=== PATIENT | male | born 1965 | race Caucasian/White ===

== ENCOUNTER 2025-02-27 09:30 | Inpatient (IN) | payer OTHER ==
[2025-02-27 11:27] LABS: PH,URINE 7.5 (5.0-8.0); URINE APPEARANCE CLEAR; URINE BILIRUBIN NEGATIVE (NEGATIVE); URINE COLOR YELLOW; URINE GLUCOSE (UA) NEGATIVE (NEGATIVE); URINE KETONE NEGATIVE (NEGATIVE); URINE LEUK ESTERASE NEGATIVE (NEGATIVE); URINE NITRITE NEGATIVE (NEGATIVE); URINE PROTEIN NEGATIVE (NEGATIVE)
[2025-02-27 11:44] LABS: CHLORIDE 104 mmol/L (98-107); POTASSIUM 3.8 mmol/L (3.5-5.1); SODIUM 134 mmol/L (136-145)
[2025-02-27 11:47] LABS: CALCIUM 9.3 mg/dL (8.5-10.1)
[2025-02-27 11:48] LABS: ANION GAP 7 mmol/L (4-13); BLOOD UREA NITROGEN 11.9 mg/dL (7-18); CO2 24 mmol/L (21-32); GLUCOSE,RANDOM 105 mg/dL (74-106); MAGNESIUM 2.2 mg/dL (1.8-2.4)
[2025-02-27 11:50] LABS: CREATININE 0.5 mg/dL (0.55-1.3); SGOT/AST 42 U/L (15-37); SGPT/ALT 33 U/L (13-61)
[2025-02-27 11:51] LABS: BILIRUBIN,TOTAL 0.7 mg/dL (0.2-1)
[2025-02-27 11:52] LABS: ALK PHOS 285 U/L (45-117); TOT PROT 6.8 g/dl (6.4-8.2)
[2025-02-27 12:18] LABS: ABSOLUTE IMMATURE GRANULOCYTES 0.04 x10^3/uL (0.0-0.031); BASOPHILS # 0.05 x10^3/uL (0.01-0.08); EOSINOPHIL % 0.7 % (0.8-7.0); EOSINOPHILS # 0.07 x10^3/uL (0.04-0.54); HEMATOCRIT 32.5 % (40.1-51.0); HEMOGLOBIN 10.5 g/dL (13.7-17.5); MCHC 32.3 g/dl (32.3-36.5); MEAN CELL VOLUME 83.8 fl (79.0-92.2); MEAN PLT VOLUME 9.6 fl (9.4-12.4); MONOCYTE # 0.82 x10^3/uL (0.30-0.82); MONOCYTE % 8.7 % (5.3-12.2); PLATELET COUNT 367 x10^3/uL (163-337); RDW 12.8 % (12.2-16.1)
[2025-02-27 12:25] LABS: INR 1.14 (0.83-1.09); PROTHROMBIN TIME (PATIENT) 12.4 SEC (9.7-13.0)
[2025-02-27 12:27] LABS: ACTIVATED PTT 19.5 SECONDS (25.2-36.5)
[2025-02-27 12:52] LABS: HIV INTERPRETATION NEGATIVE (NEGATIVE)
[2025-02-27 12:56] LABS: HCV DIAGNOSTIC IN-HOUSE W/RFLX NON-REACTIVE (NONREACTIVE)
[2025-02-27] MEDS ORDERED: ONDANSETRON 4 MG/2 ML VIAL IVPUSH PRN (14:57)
[2025-02-27] MEDS ORDERED: morphine SULFATE 4 MG/ML VIAL ONE (16:08)
[2025-02-27] MEDS: morphine SULFATE 4 MG/ML VIAL IVPUSH ONE (16:15)
[2025-02-27 17:05] LABS: METHADONE, UR NEGATIVE (NEGATIVE); URINE AMPHETAMINES NEGATIVE (NEGATIVE); URINE BARBITURATES NEGATIVE (NEGATIVE); URINE BENZODIAZEPINES NEGATIVE (NEGATIVE)
[2025-02-27 17:06] LABS: OPIATES, URI NEGATIVE (NEGATIVE); PHENCYCLIDINE,URINE NEGATIVE (NEGATIVE)
[2025-02-27 17:08] LABS: COCAINE, UR POSITIVE (NEGATIVE)
[2025-02-27 17:25] VITALS: BMI 28.3
[2025-02-27] MEDS: traMADol HCL 50 MG TABLET PO PRN (19:01)
[2025-02-27] MEDS: HEPARIN NA (PORCINE) 5,000 UNITS/ML 1ML VIAL SQ SCH (21:17)
[2025-02-27] MEDS: ACETAMINOPHEN 500 MG TABLET (FP) PO PRN (21:22)
[2025-02-28 08:21] LABS: ABSOLUTE IMMATURE GRANULOCYTES 0.02 x10^3/uL (0.0-0.031); BASOPHILS # 0.05 x10^3/uL (0.01-0.08); EOSINOPHIL % 1.2 % (0.8-7.0); EOSINOPHILS # 0.08 x10^3/uL (0.04-0.54); HEMATOCRIT 30.6 % (40.1-51.0); HEMOGLOBIN 10.1 g/dL (13.7-17.5); MEAN CELL VOLUME 82.9 fl (79.0-92.2); MEAN PLT VOLUME 9.1 fl (9.4-12.4); MONOCYTE # 0.67 x10^3/uL (0.30-0.82); MONOCYTE % 10.2 % (5.3-12.2); PLATELET COUNT 361 x10^3/uL (163-337); RDW 12.6 % (12.2-16.1)
[2025-02-28 09:01] LABS: INR 1.18 (0.83-1.09)
[2025-02-28 09:05] LABS: POTASSIUM 3.8 mmol/L (3.5-5.1)
[2025-02-28 09:07] LABS: BLOOD UREA NITROGEN 8.8 mg/dL (7-18); CALCIUM 9.2 mg/dL (8.5-10.1)
[2025-02-28 09:11] LABS: CREATININE 0.6 mg/dL (0.55-1.3)
[2025-02-28 09:13] LABS: BILIRUBIN,TOTAL 0.6 mg/dL (0.2-1)
[2025-02-28 12:32] LABS: HEPATITIS B SURF AG NON-MATERN NON-REACTIVE (NONREACTIVE)
[2025-02-28] MEDS: ACETAMINOPHEN 1000 MG/100 ML BAG IVPB ONE (16:49)
[2025-02-28] MEDS ORDERED: LACTATED RINGERS SOLUTION 1,000 ML/1,000 ML INFUS.BAG IV SCH (17:45)
[2025-02-28] MEDS: LACTATED RINGERS SOLUTION 1,000 ML/1,000 ML INFUS.BAG IV SCH (23:01)
[2025-03-01 08:30] LABS: ABSOLUTE IMMATURE GRANULOCYTES 0.02 x10^3/uL (0.0-0.031); BASOPHILS # 0.04 x10^3/uL (0.01-0.08); EOSINOPHIL % 1.1 % (0.8-7.0); EOSINOPHILS # 0.08 x10^3/uL (0.04-0.54); HEMATOCRIT 30.9 % (40.1-51.0); HEMOGLOBIN 10.1 g/dL (13.7-17.5); MCHC 32.7 g/dl (32.3-36.5); MEAN CELL VOLUME 83.1 fl (79.0-92.2); MEAN PLT VOLUME 9.1 fl (9.4-12.4); MONOCYTE # 0.64 x10^3/uL (0.30-0.82); MONOCYTE % 8.7 % (5.3-12.2); PLATELET COUNT 368 x10^3/uL (163-337); RDW 12.6 % (12.2-16.1)
[2025-03-01 08:37] LABS: INR 1.18 (0.83-1.09); PROTHROMBIN TIME (PATIENT) 12.9 SEC (9.7-13.0)
[2025-03-01 08:55] LABS: POTASSIUM 4.1 mmol/L (3.5-5.1)
[2025-03-01 09:06] LABS: ALBUMIN 2.9 g/dl (3.4-5.0); BLOOD UREA NITROGEN 7.7 mg/dL (7-18); CALCIUM 9.3 mg/dL (8.5-10.1)
[2025-03-01 09:07] LABS: CREATININE 0.6 mg/dL (0.55-1.3)
[2025-03-01 09:10] LABS: BILIRUBIN,TOTAL 0.9 mg/dL (0.2-1); TOT PROT 6.7 g/dl (6.4-8.2)
[2025-03-01] MEDS: MULTIVITAMINS (DAILY MVI) TABLET (FP) PO SCH (09:19)
[2025-03-01] MEDS: PANTOPRAZOLE SODIUM 40 MG VIAL IVPUSH SCH (09:22)
[2025-03-01] MEDS ORDERED: PANTOPRAZOLE SODIUM 40 MG in SODIUM CHLORIDE 100 ML IVPB SCH (10:00)
[2025-03-01] MEDS ORDERED: MIDAZOLAM HCL 2 MG/2 ML SINGLE DOSE VIAL ONE (10:32)
[2025-03-01 14:06] LABS: CARCINOEMBRYONIC ANTIGEN 26.1 ng/mL (0.0-4.7)
[2025-03-02] MEDS: POLYETHYLENE GLYCOL (HEALTHYLAX) 3350 17 GM PACKET PO SCH (00:05)
[2025-03-02 08:38] LABS: ABSOLUTE IMMATURE GRANULOCYTES 0.05 x10^3/uL (0.0-0.031); BASOPHILS # 0.04 x10^3/uL (0.01-0.08); EOSINOPHIL % 0.3 % (0.8-7.0); EOSINOPHILS # 0.03 x10^3/uL (0.04-0.54); HEMATOCRIT 30.1 % (40.1-51.0); HEMOGLOBIN 9.8 g/dL (13.7-17.5); MCHC 32.6 g/dl (32.3-36.5); MEAN CELL VOLUME 83.1 fl (79.0-92.2); MEAN PLT VOLUME 9.4 fl (9.4-12.4); MONOCYTE # 0.93 x10^3/uL (0.30-0.82); MONOCYTE % 8.5 % (5.3-12.2); PLATELET COUNT 402 x10^3/uL (163-337); RDW 12.7 % (12.2-16.1)
[2025-03-02 09:05] LABS: POTASSIUM 4.2 mmol/L (3.5-5.1)
[2025-03-02 09:15] LABS: CALCIUM 9.4 mg/dL (8.5-10.1)
[2025-03-02 09:17] LABS: BLOOD UREA NITROGEN 9.5 mg/dL (7-18); MAGNESIUM 2.3 mg/dL (1.8-2.4)
[2025-03-02 09:18] LABS: CREATININE 0.7 mg/dL (0.55-1.3)
[2025-03-02 09:20] LABS: BILIRUBIN,TOTAL 0.4 mg/dL (0.2-1); TOT PROT 6.8 g/dl (6.4-8.2)
[2025-03-02] MEDS: PANTOPRAZOLE 40 MG TABLET PO SCH (10:39)
[2025-03-02] MEDS: SENNOSIDES 8.6MG TABLET (FP) PO PRN (21:36)
[2025-03-03 08:48] LABS: ABSOLUTE IMMATURE GRANULOCYTES 0.03 x10^3/uL (0.0-0.031); BASOPHILS # 0.04 x10^3/uL (0.01-0.08); EOSINOPHIL % 0.6 % (0.8-7.0); EOSINOPHILS # 0.05 x10^3/uL (0.04-0.54); HEMATOCRIT 31.6 % (40.1-51.0); HEMOGLOBIN 10.1 g/dL (13.7-17.5); MEAN CELL VOLUME 83.2 fl (79.0-92.2); MEAN PLT VOLUME 9.3 fl (9.4-12.4); MONOCYTE # 0.89 x10^3/uL (0.30-0.82); MONOCYTE % 10.6 % (5.3-12.2); PLATELET COUNT 372 x10^3/uL (163-337); RDW 12.8 % (12.2-16.1)
[2025-03-03 08:55] LABS: INR 1.17 (0.83-1.09); PROTHROMBIN TIME (PATIENT) 12.7 SEC (9.7-13.0)
[2025-03-03 09:17] LABS: POTASSIUM 4.5 mmol/L (3.5-5.1)
[2025-03-03 09:23] LABS: CALCIUM 9.4 mg/dL (8.5-10.1)
[2025-03-03 09:24] LABS: BLOOD UREA NITROGEN 11.4 mg/dL (7-18)
[2025-03-03 09:26] LABS: BILIRUBIN,TOTAL 0.6 mg/dL (0.2-1); TOT PROT 6.9 g/dl (6.4-8.2)
[2025-03-03 09:27] LABS: CREATININE 0.6 mg/dL (0.55-1.3)
[2025-03-03] MEDS: LACTATED RINGERS SOLUTION 1,000 ML/1,000 ML INFUS.BAG IV SCH (12:36)
[2025-03-03] MEDS: MAGNESIUM HYDROX 2400MG/30ML ORAL SUSPENSION 30 ML CUP PO ONE (12:36)
[2025-03-03] MEDS ORDERED: POLYETHYLENE GLYCOL (HEALTHYLAX) 3350 17 GM PACKET PO SCH (17:15)
[2025-03-03] MEDS: POLYETHYLENE GLYCOL (HEALTHYLAX) 3350 17 GM PACKET PO SCH (21:04)
[2025-03-04 07:25] LABS: ABSOLUTE IMMATURE GRANULOCYTES 0.03 x10^3/uL (0.0-0.031); BASOPHILS # 0.04 x10^3/uL (0.01-0.08); EOSINOPHIL % 0.9 % (0.8-7.0); EOSINOPHILS # 0.08 x10^3/uL (0.04-0.54); HEMATOCRIT 33.3 % (40.1-51.0); HEMOGLOBIN 10.7 g/dL (13.7-17.5); MCHC 32.1 g/dl (32.3-36.5); MEAN CELL VOLUME 82.6 fl (79.0-92.2); MEAN PLT VOLUME 9.4 fl (9.4-12.4); MONOCYTE # 0.69 x10^3/uL (0.30-0.82); MONOCYTE % 7.8 % (5.3-12.2); PLATELET COUNT 414 x10^3/uL (163-337); RDW 12.8 % (12.2-16.1)
[2025-03-04 07:49] LABS: INR 1.15 (0.83-1.09); PROTHROMBIN TIME (PATIENT) 12.5 SEC (9.7-13.0)
[2025-03-04 07:55] LABS: ALBUMIN 3.2 g/dl (3.4-5.0); BLOOD UREA NITROGEN 9.1 mg/dL (7-18); CALCIUM 9.5 mg/dL (8.5-10.1)
[2025-03-04 07:56] LABS: MAGNESIUM 2.3 mg/dL (1.8-2.4)
[2025-03-04 07:58] LABS: CREATININE 0.6 mg/dL (0.55-1.3)
[2025-03-04 08:00] LABS: BILIRUBIN,TOTAL 0.7 mg/dL (0.2-1); TOT PROT 7.1 g/dl (6.4-8.2)
[2025-03-04] MEDS ORDERED: MIDAZOLAM HCL 2 MG/2 ML SINGLE DOSE VIAL ONE (10:30)
[2025-03-04] MEDS ORDERED: FENTANYL CITRATE/PF 50 MCG/ML VIAL ONE (10:30)
[2025-03-04] MEDS: FENTANYL CITRATE/PF 50 MCG/ML VIAL IVPUSH ONE (10:34)
[2025-03-04] MEDS: SODIUM CHLORIDE 500 ML IV ONE (13:38)
[2025-03-04 15:25] VITALS: RESP 18
[2025-03-05 08:30] LABS: ABSOLUTE IMMATURE GRANULOCYTES 0.03 x10^3/uL (0.0-0.031); BASOPHILS # 0.05 x10^3/uL (0.01-0.08); EOSINOPHIL % 0.7 % (0.8-7.0); EOSINOPHILS # 0.06 x10^3/uL (0.04-0.54); HEMATOCRIT 31.8 % (40.1-51.0); HEMOGLOBIN 10.2 g/dL (13.7-17.5); MCHC 32.1 g/dl (32.3-36.5); MEAN CELL VOLUME 81.5 fl (79.0-92.2); MEAN PLT VOLUME 9.3 fl (9.4-12.4); MONOCYTE % 8.7 % (5.3-12.2); PLATELET COUNT 383 x10^3/uL (163-337); RDW 12.8 % (12.2-16.1)
[2025-03-05 09:52] LABS: CALCIUM 9.4 mg/dL (8.5-10.1)
[2025-03-05 09:53] LABS: BLOOD UREA NITROGEN 8.7 mg/dL (7-18); MAGNESIUM 2.2 mg/dL (1.8-2.4)
[2025-03-05 09:56] LABS: CREATININE 0.6 mg/dL (0.55-1.3)
[2025-03-05 09:58] LABS: BILIRUBIN,TOTAL 0.5 mg/dL (0.2-1); TOT PROT 7.1 g/dl (6.4-8.2)
[2025-03-05 10:06] LABS: POTASSIUM 4.2 mmol/L (3.5-5.1)
[2025-03-05 15:18] VITALS: BP 131/84; PULSE 73; TEMP 99.3
== END 2025-03-05 14:24 | disposition home health service (06) | DRG 281 ==
LOC: JER 09:30 → JERBED 14:55 → J8W 16:52
PROVIDERS: ADMIT Internal Medicine; ATTEND Nurse Practitioner Acute Care
PROC: 0FBG3ZX Excision of Pancreas, Percutaneous Approach, Diagnostic (ICD-10-PCS; principal; 2025-03-01 13:30)
PROC: 0FB03ZX Excision of Liver, Percutaneous Approach, Diagnostic (ICD-10-PCS; 2025-03-04)
DX: C25.9 Malignant neoplasm of pancreas, unspecified (principal); R91.1 Solitary pulmonary nodule; C78.7 Secondary malignant neoplasm of liver and intrahepatic bile duct; E44.0 Moderate protein-calorie malnutrition; Z68.28 Body mass index [BMI] 28.0-28.9, adult; R63.4 Abnormal weight loss
CPT/HCPCS: 36415; 47000; 71260-TC; 74177-TC; 74183-TC; 76942-TC; 80048; 80053; 80307; 81003; 82105; 82378; 82550; 83690; 83735; 84484; 85025; 85610; 85730; 86301; 86704; 86708; 86803; 86850; 86900; 86901; 87086; 87340; 87389; 87517; 88305-TC; 88307-TC; 88341-TC; 88342-TC; 93005; 93010; 97116-GP; 97161-GP; 99285-25; J0131; J1644

== ENCOUNTER 2025-03-27 12:47 | Emergency (ER) | payer OTHER ==
[2025-03-27 13:08] VITALS: RESP 20; TEMP 98.4; BMI 28.3
[2025-03-27 14:35] VITALS: PULSE 98
[2025-03-27] MEDS: LACTATED RINGERS SOLUTION 1000 ML INFUS.BAG IV ONE (14:37)
[2025-03-27 14:46] LABS: HEMATOCRIT 27.6 % (40.1-51.0); HEMOGLOBIN 8.9 g/dL (13.7-17.5); MCHC 32.2 g/dl (32.3-36.5); RDW 14.2 % (12.2-16.1)
[2025-03-27 14:47] LABS: MEAN PLT VOLUME 9.3 fl (9.4-12.4); PLATELET COUNT 261 x10^3/uL (163-337)
[2025-03-27 14:55] LABS: POTASSIUM 4.1 mmol/L (3.5-5.1)
[2025-03-27 14:57] LABS: CALCIUM 9.6 mg/dL (8.5-10.1)
[2025-03-27 14:58] LABS: BLOOD UREA NITROGEN 16.2 mg/dL (7-18); MAGNESIUM 2.1 mg/dL (1.8-2.4)
[2025-03-27 15:01] LABS: CREATININE 0.7 mg/dL (0.55-1.3)
[2025-03-27 15:03] LABS: BILIRUBIN,TOTAL 0.5 mg/dL (0.2-1); TOT PROT 7.3 g/dl (6.4-8.2)
[2025-03-27 16:19] VITALS: BP 112/67
== END 2025-03-27 16:20 | disposition home or self-care (01) ==
LOC: JER 12:47
DX: I95.9 Hypotension, unspecified (principal)
CPT/HCPCS: 0241U-QW; 36415; 71046-TC-FY; 80053; 83735; 84484; 85025; 93005; 93010; 99285-25

== ENCOUNTER 2025-04-30 08:08 | Day surgery (SDC) | payer OTHER ==
[2025-04-30 08:43] LABS: ABSOLUTE IMMATURE GRANULOCYTES 0.01 x10^3/uL (0.0-0.031); BASOPHILS # 0.04 x10^3/uL (0.01-0.08); EOSINOPHIL % 0.4 % (0.8-7.0); EOSINOPHILS # 0.02 x10^3/uL (0.04-0.54); MCHC 30.4 g/dl (32.3-36.5); MEAN CELL VOLUME 75.2 fl (79.0-92.2); MEAN PLT VOLUME 8.8 fl (9.4-12.4); MONOCYTE # 0.59 x10^3/uL (0.30-0.82); MONOCYTE % 12.6 % (5.3-12.2); RDW 17.2 % (12.2-16.1)
[2025-04-30 09:07] LABS: CO2 25 mmol/L (21-32); GLUCOSE,RANDOM 172 mg/dL (74-106)
[2025-04-30 09:10] LABS: CREATININE 0.5 mg/dL (0.55-1.3)
[2025-04-30 09:23] LABS: SGOT/AST 30.0 U/L (15-37); SGPT/ALT 25.0 U/L (13-61)
[2025-04-30 09:24] LABS: TOT PROT 6.9 g/dl (6.4-8.2)
[2025-04-30 09:26] LABS: ALK PHOS 387.0 U/L (45-117)
[2025-04-30] MEDS: FOSAPREPITANT DIMEGLUMINE 150 MG in SODIUM CHLORIDE 145 ML IVPB ONE (11:06)
[2025-04-30] MEDS: PALONOSETRON HCL 0.25 MG/5 ML VIAL IVPUSH ONE (11:09)
[2025-04-30] MEDS: SODIUM CHLORIDE 250 ML IV ONE (11:10)
[2025-04-30] MEDS: DEXAMETHASONE SODIUM PHOSPHATE 10 MG in SODIUM CHLORIDE 50 ML IVPB ONE (11:47)
[2025-04-30] MEDS: LEUCOVORIN IVPB ONE (14:31)
[2025-04-30] MEDS: WATER IVPB ONE ×2 (14:31→14:32)
[2025-04-30] MEDS: DEXTROSE 5% IVPB ONE ×2 (14:31→14:32)
[2025-04-30] MEDS: ATROPINE SO4 0.4 MG/1 ML VIAL IVPUSH ONE (14:31)
[2025-04-30] MEDS: IRINOTECAN HCL IVPB ONE (14:32)
[2025-04-30 15:57] VITALS: TEMP 98.3
[2025-04-30] MEDS: FLUOROURACIL 4,500 MG in SODIUM CHLORIDE 2 ML CP ONE (16:40)
[2025-04-30 17:32] VITALS: BP 126/74; PULSE 85; RESP 20
== END 2025-04-30 15:45 | disposition home or self-care (01) ==
LOC: JONCCHEMO 08:08
PROVIDERS: ATTEND Internal Medicine Hematology & Oncology
DX: Z51.11 Encounter for antineoplastic chemotherapy (principal); C25.9 Malignant neoplasm of pancreas, unspecified; C78.7 Secondary malignant neoplasm of liver and intrahepatic bile duct
CPT/HCPCS: 36415; 80048; 80076; 85025; 86301; 96367; 96368; 96375; 96413; 96415; 96417; G0498; J1453; J9206; J9263

== ENCOUNTER 2025-05-02 13:40 | Day surgery (SDC) | payer OTHER ==
[2025-05-02] MEDS: PORTA CATH FLUSH 10 ML IVPUSH PRN (14:30)
[2025-05-02 16:45] VITALS: BP 105/67; PULSE 97; RESP 18; TEMP 97.6
== END 2025-05-02 14:50 | disposition home or self-care (01) ==
LOC: JONCCHEMO 13:40 → J7W 14:24 → JONCCHEMO 14:50
PROVIDERS: ATTEND Internal Medicine Hematology & Oncology
DX: Z53.8 Procedure and treatment not carried out for other reasons (principal)

== ENCOUNTER 2025-05-28 08:25 | Day surgery (SDC) | payer OTHER ==
[2025-05-28] MEDS: SODIUM CHLORIDE 250 ML IV ONE (08:50)
[2025-05-28 09:21] LABS: ABSOLUTE IMMATURE GRANULOCYTES 0.02 x10^3/uL (0.0-0.031); BASOPHILS # 0.04 x10^3/uL (0.01-0.08); EOSINOPHIL % 1.0 % (0.8-7.0); EOSINOPHILS # 0.05 x10^3/uL (0.04-0.54); MCHC 30.0 g/dl (32.3-36.5); MEAN CELL VOLUME 74.5 fl (79.0-92.2); MEAN PLT VOLUME 9.9 fl (9.4-12.4); MONOCYTE # 0.63 x10^3/uL (0.30-0.82); MONOCYTE % 12.8 % (5.3-12.2); RDW 19.9 % (12.2-16.1)
[2025-05-28 10:18] LABS: CO2 28.0 mmol/L (21-32); GLUCOSE,RANDOM 234.0 mg/dL (74-106)
[2025-05-28 10:21] LABS: CREATININE 0.6 mg/dL (0.55-1.3)
[2025-05-28 11:05] LABS: SGOT/AST 26.0 U/L (15-37); SGPT/ALT 31.0 U/L (13-61)
[2025-05-28 11:06] LABS: TOT PROT 7.0 g/dl (6.4-8.2)
[2025-05-28 11:07] LABS: ALK PHOS 294.0 U/L (45-117)
[2025-05-28] MEDS: FOSAPREPITANT DIMEGLUMINE 150 MG in SODIUM CHLORIDE 145 ML IVPB ONE (11:10)
[2025-05-28] MEDS: DEXAMETHASONE SODIUM PHOSPHATE 10 MG in SODIUM CHLORIDE 50 ML IVPB ONE (11:42)
[2025-05-28] MEDS: PALONOSETRON HCL 0.25 MG/5 ML VIAL IVPUSH ONE (11:42)
[2025-05-28 14:09] VITALS: RESP 20; TEMP 98
[2025-05-28] MEDS: ATROPINE SO4 0.4 MG/1 ML VIAL IVPUSH ONE (14:20)
[2025-05-28] MEDS: WATER IVPB ONE ×2 (14:21→14:22)
[2025-05-28] MEDS: LEUCOVORIN IVPB ONE (14:21)
[2025-05-28] MEDS: DEXTROSE 5% IVPB ONE ×2 (14:21→14:22)
[2025-05-28] MEDS: IRINOTECAN HCL IVPB ONE (14:22)
[2025-05-28] MEDS: FLUOROURACIL 4,500 MG in SODIUM CHLORIDE 2 ML CP ONE (16:35)
[2025-05-28 17:39] VITALS: BP 123/77; PULSE 92
== END 2025-05-28 16:45 | disposition home or self-care (01) ==
LOC: JONCCHEMO 08:25 → J7W 08:38 → JONCCHEMO 16:45
PROVIDERS: ATTEND Internal Medicine Hematology & Oncology
DX: Z51.11 Encounter for antineoplastic chemotherapy (principal); C25.9 Malignant neoplasm of pancreas, unspecified; C78.7 Secondary malignant neoplasm of liver and intrahepatic bile duct
CPT/HCPCS: 36415; 80048; 80076; 85025; 86301; 96367; 96368; 96375; 96413; 96415; 96417; G0498; J1453; J9206; J9263

== ENCOUNTER 2025-06-11 08:28 | Day surgery (SDC) | payer OTHER ==
[2025-06-11] MEDS: SODIUM CHLORIDE 250 ML IV ONE (09:00)
[2025-06-11 09:19] LABS: ABSOLUTE IMMATURE GRANULOCYTES 0.01 x10^3/uL (0.0-0.031); BASOPHILS # 0.03 x10^3/uL (0.01-0.08); EOSINOPHIL % 1.1 % (0.8-7.0); EOSINOPHILS # 0.05 x10^3/uL (0.04-0.54); MCHC 30.4 g/dl (32.3-36.5); MEAN CELL VOLUME 75.5 fl (79.0-92.2); MONOCYTE # 0.65 x10^3/uL (0.30-0.82); MONOCYTE % 13.7 % (5.3-12.2); RDW 20.4 % (12.2-16.1)
[2025-06-11 09:46] LABS: GLUCOSE,RANDOM 294 mg/dL (74-106)
[2025-06-11 09:47] LABS: TOT PROT 7.0 g/dl (6.4-8.2)
[2025-06-11 09:48] LABS: CO2 25 mmol/L (21-32)
[2025-06-11 09:49] LABS: ALK PHOS 265 U/L (40-150)
[2025-06-11 09:52] LABS: CREATININE 0.50 mg/dL (0.55-1.3); SGOT/AST 31 U/L (5-34); SGPT/ALT 26 U/L (0-55)
[2025-06-11] MEDS: FOSAPREPITANT DIMEGLUMINE 150 MG in SODIUM CHLORIDE 145 ML IVPB ONE (10:34)
[2025-06-11] MEDS: DEXAMETHASONE SODIUM PHOSPHATE 10 MG in SODIUM CHLORIDE 50 ML IVPB ONE (11:07)
[2025-06-11] MEDS: PALONOSETRON HCL 0.25 MG/5 ML VIAL IVPUSH ONE (11:41)
[2025-06-11] MEDS: ATROPINE SO4 0.4 MG/1 ML VIAL IVPUSH ONE (13:57)
[2025-06-11] MEDS: LEUCOVORIN IVPB ONE (13:58)
[2025-06-11] MEDS: DEXTROSE 5% IVPB ONE ×2 (13:58→13:59)
[2025-06-11] MEDS: WATER IVPB ONE ×2 (13:58→13:59)
[2025-06-11] MEDS: IRINOTECAN HCL IVPB ONE (13:59)
[2025-06-11 15:49] VITALS: BP 110/74; PULSE 93; RESP 18; TEMP 97.7
[2025-06-11] MEDS ORDERED: PORTA CATH FLUSH 10 ML IVPUSH PRN (15:56)
[2025-06-11] MEDS: FLUOROURACIL 4,575 MG in SODIUM CHLORIDE 0.5 ML CP ONE (16:18)
== END 2025-06-11 16:30 | disposition home or self-care (01) ==
LOC: JONCCHEMO 08:28 → J7W 08:28 → JONCCHEMO 16:30
PROVIDERS: ATTEND Internal Medicine Hematology & Oncology
PROC: 3E04305 Introduction of Other Antineoplastic into Central Vein, Percutaneous Approach (ICD-10-PCS; principal; 2025-06-11)
PROC: 3E043GC Introduction of Other Therapeutic Substance into Central Vein, Percutaneous Approach (ICD-10-PCS; 2025-06-11)
DX: Z51.11 Encounter for antineoplastic chemotherapy (principal); C25.9 Malignant neoplasm of pancreas, unspecified; C78.7 Secondary malignant neoplasm of liver and intrahepatic bile duct
CPT/HCPCS: 36415; 80048; 80076; 85025; 96368; 96413; 96415; G0498; J1453; J9206; J9263

== ENCOUNTER 2025-07-09 07:41 | Day surgery (SDC) | payer OTHER ==
[2025-07-09 08:18] LABS: IMMATURE PLATELET FRACTION # 3.00 x10^3/uL; MCHC 30.9 g/dl (32.3-36.5); MEAN CELL VOLUME 76.5 fl (79.0-92.2); MEAN PLT VOLUME 10.0 fl (9.4-12.4); RDW 19.8 % (12.2-16.1)
[2025-07-09 09:05] LABS: GLUCOSE,RANDOM 249 mg/dL (74-106); TOT PROT 7.0 g/dl (6.4-8.2)
[2025-07-09 09:06] LABS: CO2 23 mmol/L (21-32)
[2025-07-09 09:10] LABS: ALK PHOS 255 U/L (40-150)
[2025-07-09 09:11] LABS: CREATININE 0.54 mg/dL (0.55-1.3); SGOT/AST 41 U/L (5-34); SGPT/ALT 32 U/L (0-55)
[2025-07-09] MEDS: SODIUM CHLORIDE 250 ML IV ONE (10:07)
[2025-07-09] MEDS: DEXAMETHASONE SODIUM PHOSPHATE 10 MG in SODIUM CHLORIDE 50 ML IVPB ONE (10:08)
[2025-07-09] MEDS: FOSAPREPITANT DIMEGLUMINE 150 MG in SODIUM CHLORIDE 145 ML IVPB ONE (10:24)
[2025-07-09] MEDS: PALONOSETRON HCL 0.25 MG/5 ML VIAL IVPUSH ONE (11:04)
[2025-07-09] MEDS: ATROPINE SO4 0.4 MG/1 ML VIAL IVPUSH ONE (13:13)
[2025-07-09] MEDS: LEUCOVORIN IVPB ONE (13:14)
[2025-07-09] MEDS: WATER IVPB ONE ×2 (13:14→13:15)
[2025-07-09] MEDS: DEXTROSE 5% IVPB ONE ×2 (13:14→13:15)
[2025-07-09] MEDS: IRINOTECAN HCL IVPB ONE (13:15)
[2025-07-09 13:45] VITALS: RESP 16; TEMP 98.1
[2025-07-09] MEDS: FLUOROURACIL 4,575 MG in SODIUM CHLORIDE 0.5 ML CP ONE (15:26)
[2025-07-09 15:30] VITALS: BP 133/73; PULSE 88
== END 2025-07-09 15:39 | disposition home or self-care (01) ==
LOC: JONCCHEMO 07:41
PROVIDERS: ATTEND Internal Medicine Hematology & Oncology
DX: Z51.11 Encounter for antineoplastic chemotherapy (principal); C25.1 Malignant neoplasm of body of pancreas
CPT/HCPCS: 36415; 80048; 80076; 85025; 96367; 96368; 96375; 96413; 96415; 96417; G0498; J1453; J9206; J9263

== ENCOUNTER 2025-07-23 07:44 | Day surgery (SDC) | payer OTHER ==
[2025-07-23 08:52] LABS: ABSOLUTE IMMATURE GRANULOCYTES 0.01 x10^3/uL (0.0-0.031); BASOPHILS # 0.02 x10^3/uL (0.01-0.08); EOSINOPHIL % 1.1 % (0.8-7.0); EOSINOPHILS # 0.05 x10^3/uL (0.04-0.54); MCHC 30.4 g/dl (32.3-36.5); MEAN CELL VOLUME 78.5 fl (79.0-92.2); MONOCYTE # 0.56 x10^3/uL (0.30-0.82); MONOCYTE % 12.6 % (5.3-12.2); RDW 19.0 % (12.2-16.1)
[2025-07-23 09:24] LABS: GLUCOSE,RANDOM 278 mg/dL (74-106)
[2025-07-23 09:25] LABS: TOT PROT 6.6 g/dl (6.4-8.2)
[2025-07-23 09:26] LABS: CO2 24 mmol/L (21-32)
[2025-07-23 09:30] LABS: CREATININE 0.60 mg/dL (0.55-1.3); SGOT/AST 39 U/L (5-34); SGPT/ALT 27 U/L (0-55)
[2025-07-23] MEDS: SODIUM CHLORIDE 250 ML IV ONE (09:30)
[2025-07-23 09:35] LABS: ALK PHOS 248 U/L (40-150)
[2025-07-23] MEDS: FOSAPREPITANT DIMEGLUMINE 150 MG in SODIUM CHLORIDE 145 ML IVPB ONE (10:22)
[2025-07-23] MEDS: DEXAMETHASONE SODIUM PHOSPHATE 10 MG in SODIUM CHLORIDE 50 ML IVPB ONE (11:05)
[2025-07-23] MEDS: PALONOSETRON HCL 0.25 MG/5 ML VIAL IVPUSH ONE (11:06)
[2025-07-23] MEDS: ATROPINE SO4 0.4 MG/1 ML VIAL IVPUSH ONE (13:53)
[2025-07-23] MEDS: LEUCOVORIN IVPB ONE (13:54)
[2025-07-23] MEDS: WATER IVPB ONE ×2 (13:54→13:55)
[2025-07-23] MEDS: DEXTROSE 5% IVPB ONE ×2 (13:54→13:55)
[2025-07-23] MEDS: IRINOTECAN HCL IVPB ONE (13:55)
[2025-07-23 14:56] VITALS: RESP 20; TEMP 98.7
[2025-07-23] MEDS: SODIUM CHLORIDE CP ONE (16:15)
[2025-07-23] MEDS: FLUOROURACIL CP ONE (16:15)
[2025-07-23 16:24] VITALS: BP 124/71; PULSE 83
== END 2025-07-23 16:27 | disposition home or self-care (01) ==
LOC: JONCCHEMO 07:44
PROVIDERS: ATTEND Internal Medicine Hematology & Oncology
PROC: 3E04305 Introduction of Other Antineoplastic into Central Vein, Percutaneous Approach (ICD-10-PCS; principal; 2025-07-23)
PROC: 3E043GC Introduction of Other Therapeutic Substance into Central Vein, Percutaneous Approach (ICD-10-PCS; 2025-07-23)
DX: Z51.11 Encounter for antineoplastic chemotherapy (principal); C25.9 Malignant neoplasm of pancreas, unspecified; C78.7 Secondary malignant neoplasm of liver and intrahepatic bile duct
CPT/HCPCS: 36415; 80048; 80076; 85025; 86301; 96374; 96375; 96413; 96415; 96417; G0498; J1453; J9206; J9263

== ENCOUNTER 2025-08-06 09:03 | Day surgery (SDC) | payer OTHER ==
[2025-08-06] MEDS: SODIUM CHLORIDE 250 ML IV ONE (09:36)
[2025-08-06] MEDS: FOSAPREPITANT DIMEGLUMINE 150 MG in SODIUM CHLORIDE 145 ML IVPB ONE (09:49)
[2025-08-06] MEDS: DEXAMETHASONE SODIUM PHOSPHATE 10 MG in SODIUM CHLORIDE 50 ML IVPB ONE (10:35)
[2025-08-06] MEDS: ATROPINE SO4 0.4 MG/1 ML VIAL IVPUSH ONE (11:03)
[2025-08-06] MEDS: PALONOSETRON HCL 0.25 MG/5 ML VIAL IVPUSH ONE (11:03)
[2025-08-06] MEDS: LEUCOVORIN IVPB ONE (13:19)
[2025-08-06] MEDS: IRINOTECAN HCL IVPB ONE (13:19)
[2025-08-06] MEDS: DEXTROSE 5% IVPB ONE ×2 (13:19)
[2025-08-06] MEDS: WATER IVPB ONE ×2 (13:19)
[2025-08-06] MEDS: SODIUM CHLORIDE CP ONE (15:27)
[2025-08-06] MEDS: FLUOROURACIL CP ONE (15:27)
[2025-08-06 16:16] VITALS: RESP 18; TEMP 97.7
[2025-08-06 16:24] VITALS: BP 132/71; PULSE 94
== END 2025-08-06 15:40 | disposition home or self-care (01) ==
LOC: JONCCHEMO 09:03 → J7W 09:04 → JONCCHEMO 15:40
PROVIDERS: ATTEND Internal Medicine Hematology & Oncology
DX: Z51.11 Encounter for antineoplastic chemotherapy (principal); C25.9 Malignant neoplasm of pancreas, unspecified; C78.7 Secondary malignant neoplasm of liver and intrahepatic bile duct
CPT/HCPCS: 96367; 96368; 96375; 96413; 96415; 96417; G0498; J1453; J9206; J9263